=== PATIENT | female | born 1960 | race Hispanic/Latino ===

== ENCOUNTER 2020-07-20 10:08 | Day surgery (SDC) | payer MEDICARE, MEDICAID ==
[~2020-07-20 10:08] MED LIST: SODIUM CHLORIDE 0.9% 1000 ML 1,000 ML IV SCH
--- NOTE | 2020-07-20 10:42 | Anesthesia Day of Surgery ---
Anesthesia Day of Surgery - Day of Surgery Patient Examined: Yes Patient H&P Reviewed: Yes Patient is NPO: Yes
--- NOTE | 2020-07-20 10:54 | Anesthesia Consultation ---
Anesthesia Consult and Med Hx Date of service: 07/20/20 - Airway Anesthetic Teeth Evaluation: Poor ROM Head & Neck: Inadequate (S/P ACDF 04/2020) Mental/Hyoid Distance: Inadequate Mallampati Class: Class III Intubation Access Assessment: Probably Good - Pre-Operative Health Status ASA Pre-Surgery Classification: ASA3 Proposed Anesthetic Plan: MAC - Pulmonary Hx Respiratory Symptoms: Yes (Unable to ambulate much) - Cardiovascular System Hx Hypertension: Yes Hx Cardia Arrhythmia: Yes (Tachycardia/PVCs) - Central Nervous System Hx Neuromuscular Disorder: Yes (Gout. Neuropathy legs) Hx Psychiatric Problems: Yes (Anxiety/Depression) - Gastrointestinal Hx Gastroesophageal Reflux Disease: Yes - Endocrine Hx Renal Disease: Yes (Stage III CKD) Hx Liver Disease: Yes (Liver tx 2016) Hx Thyroid Disease: Yes (Nodules; asymptomatic) - Other Systems Hx Alcohol Use: Yes - Additional Comments Anesthesia Medical History Comments: Hx hypocalcemia
[2020-07-20] MEDS ORDERED: propofoL 200 MG/20 ML VIAL IV ONE (10:55)
--- NOTE | 2020-07-20 10:55 | Anesthesia Consultation ---
Anesthesia Consult and Med Hx Date of service: 07/20/20 - Pre-Operative Health Status ASA Pre-Surgery Classification: ASA3 Proposed Anesthetic Plan: MAC
--- NOTE | 2020-07-20 11:49 | Short Stay Summary ---
Short Stay Documentation Date of service: 07/20/20 Narrative H&P: The patient presents for a history of colon polyps. - History Past Medical History: hypertension, liver disease, other (Orthotopic liver transplant, pancreatic insufficiency,alcoholism, depression, chronic diarrhea and incontinence) Past Surgical History: Other (Liver transplant, spinal surgery) Social history: Lives alone, smoking, alcohol abuse - Allergies and Medications Current Medications: Allergies adhesive tape Allergy (Verified 07/19/20 14:41) Unknown ciprofloxacin [From Cipro] Allergy (Verified 07/19/20 14:41) Unknown codeine Allergy (Verified 07/19/20 14:41) Unknown hydromorphone [From Dilaudid] Allergy (Verified 07/19/20 14:41) Unknown mushroom Allergy (Verified 07/19/20 14:41) Unknown Penicillins Allergy (Verified 07/19/20 14:41) Unknown Sulfa (Sulfonamide Antibiotics) Allergy (Verified 07/19/20 14:41) Unknown Home Medications Medication Instructions Recorded Confirmed Last Taken Type Amlodipine Besylate 5 mg PO DAILY 07/19/20 07/19/20 Unknown History AtorvaSTATin 20 mg PO DAILY 07/19/20 07/19/20 Unknown History Furosemide (10 mg/ml) 20 mg PO DAILY 07/19/20 07/19/20 Unknown History Gabapentin 07/19/20 Unknown History Levocetirizine Dihydrochloride 07/19/20 Unknown History Loperamide 07/19/20 Unknown History Magnesium Oxide 07/19/20 Unknown History Metoprolol 07/19/20 Unknown History Mycophenolate Sodium 07/19/20 Unknown History Omeprazole 07/19/20 Unknown History One-A-Day -1 Softgel 07/19/20 Unknown History Prednisone 5 mg PO DAILY 07/19/20 07/19/20 Unknown History Sodium Bicarbonate 07/19/20 Unknown History Tacrolimus 1 mg PO DAILY 07/19/20 Unknown History busPIRone 5 mg PO DAILY 07/19/20 07/19/20 Unknown History Active Medications Sodium Chloride (Nacl 0.9% 1000 Ml) 1,000 mls @ 50 mls/hr IV DIRECT MAYELIN - Physical exam General appearance: no acute distress, well-nourished Integumentary: no rash, no growths, no abnormal pigmentation HEENT: Atraumatic, PERRLA, EOMI, Mucous membr. moist/pink Lungs: Clear to auscultation, Normal air movement Breasts: deferred Heart: Regular rate, Normal S1, Normal S2, No murmurs Gastrointestinal: normoactive bowel sounds, no tenderness, no distended, no masses, no organomegaly Female Genitourinary: deferred Rectal Exam: normal rectal tone, no mass Extremities: no ischemia, pulses intact, pulses symmetrical, No edema, normal temperature, normal color, Full ROM Neurological: Normal gait, Normal speech, Strength at 5/5 X4 ext, Normal tone, Sensation intact, Cranial nerves 3-12 NL - Brief post op/procedure progress note Date of procedure: 07/20/20 Findings: see dictation Estimated blood loss: none Pathology: list (random biopsies of the right colon for possible microscopic colitis) Specimen disposition: to lab Condition: stable - Disposition Condition at discharge: Good Disposition: DC-01 TO HOME OR SELFCARE - Discharge Diagnoses (1) Chronic diarrhea Status: Acute (2) History of colon polyps Status: Acute (3) Liver transplant recipient Status: Acute (4) Pancreatic insufficiency Status: Acute Short Stay Discharge Plan Activity: other (no driving for 24 hours) Weight Bearing Status: Weight Bear as Tolerated Diet: low fat Follow up with: JAZMYNE PRESCOTT MD [Primary Care Provider] - 7 Days
--- NOTE | 2020-07-20 11:54 | Operative Report ---
Operative Report Operative Report: Date of procedure: 07/20/2020 Preprocedure diagnosis: History of colon polyps, due for surveillance. History of diarrhea. Post procedure diagnosis: Normal study. Procedure: Colonoscopy to the cecum with random biopsies of the right colon for possible microscopic colitis. Endoscopist: Dr. Baltazar Anesthesia: Monitored anesthesia care per anesthesia department Estimated blood loss: 0 Medications: Monitored anesthesia care. See separate report by anesthesia for details. After careful discussion of the nature and purpose of the procedure as well as details of the technique risks benefits and alternatives the patient gave consent. Please see recent history and physical from the office. The patient was placed in the left lateral decubitus position and medicated per anesthesia. A rectal exam was performed sphincter tone was normal there were no masses palpable. The Satispayn 570 scope was passed transanally and advanced under continuous direct vision without difficulty to the cecum. The colon was well prepared. The cecum was normal. The ascending colon was normal and on forward and retroflexed views. The transverse colon, descending colon, and sigmoid colon were normal. Random right colon biopsies were taken for exclusion of microscopic colitis. The rectum was normal on forward and retroflexed views. The procedure was well-tolerated overall and the patient was observed in recovery. Conclusions: Normal colonoscopy to the cecum. Plan: Await pathology on random biopsies of the right colon. The patient will call the office in approximately 10 days for discussion. Signed electronically: Avel Baltazar M.D.
[2020-07-20 12:28] VITALS: BP 132/71
--- NOTE | 2020-07-20 16:16 | Post Anesthesia Evaluation ---
- Post Anesthesia Evaluation Patient Participated: Yes Airway Patent: Yes Stable Respiratory Function: Yes Nausea/Vomiting: No Temp > 96.8F: Yes Pain Manageable: Yes Adequeate Hydration: Yes Anesthesia Complications: No Block Receding Appropriately: Not Applicable Patient on Ventilator: No
== END 2020-07-20 12:35 | disposition home or self-care (01) ==
LOC: GIO 10:08
PROVIDERS: ATTEND Internal Medicine Gastroenterology
DX: K52.89 Other specified noninfective gastroenteritis and colitis (principal); K63.89 Other specified diseases of intestine; I12.9 Hypertensive chronic kidney disease with stage 1 through stage 4 chronic kidney disease, or unspecified chronic kidney disease; N18.30 Chronic kidney disease, stage 3 unspecified; D64.9 Anemia, unspecified; F32.9 Major depressive disorder, single episode, unspecified; F41.9 Anxiety disorder, unspecified; M19.90 Unspecified osteoarthritis, unspecified site; K21.9 Gastro-esophageal reflux disease without esophagitis; E78.5 Hyperlipidemia, unspecified; Z80.3 Family history of malignant neoplasm of breast; Z83.3 Family history of diabetes mellitus; Z86.010 Personal history of colon polyps; Z72.89 Other problems related to lifestyle; Z88.5 Allergy status to narcotic agent; Z88.0 Allergy status to penicillin; Z88.2 Allergy status to sulfonamides; Z88.8 Allergy status to other drugs, medicaments and biological substances; Z79.899 Other long term (current) drug therapy; Z94.4 Liver transplant status; Z82.49 Family history of ischemic heart disease and other diseases of the circulatory system
CPT/HCPCS: 45380; 88305; J2704; J7030

== ENCOUNTER 2021-09-29 11:55 | Outpatient (CLI) | payer MEDICARE | END 2021-09-29 11:56 | disposition home or self-care (01) | LOC: LAB 11:55 | PROVIDERS: ATTEND Specialist | DX: G95.9 Disease of spinal cord, unspecified (principal) | CPT/HCPCS: 36415; 82607; 83921 ==